=== PATIENT | female | born 1985 | race Caucasian/White ===

== ENCOUNTER 2017-12-21 15:31 | Inpatient (IN) | payer OTHER ==
[~2017-12-21] VITALS: Ht 154.9 cm; Wt 68.2 kg
[~2017-12-21 15:31] MED LIST: IBUP-1222 PO; OXYC-302 PO
[2017-12-21] MEDS ORDERED: D5%-LACTATED RINGERS 1,000 ML IV SCH (15:39)
[2017-12-21] MEDS ORDERED: LACTATED RINGERS 1,000 ML IV SCH ×2 (15:39→16:09)
[2017-12-21] MEDS ORDERED: OXYTOCIN 30U/ 0.9% NaCL 500ML 500 ML IV ONE (15:39)
[2017-12-21] MEDS ORDERED: FENTANYL PF 100 MCG/2ML IVPush PRN (16:00)
[2017-12-21] MEDS ORDERED: OXYTOCIN 30U/ 0.9% NaCL 500ML 500 ML ONE (16:00)
[2017-12-21] MEDS ORDERED: TERBUTALINE 1 MG/ML, 1ML IVPush PRN (16:00)
[2017-12-21] MEDS ORDERED: MISOPROSTOL 200 MCG TABLET ONE (16:00)
[2017-12-21] MEDS ORDERED: FENTANYL PF 100 MCG/2ML IV PRN (16:00)
[2017-12-21] MEDS ORDERED: ONDANSETRON 2MG/ML, 2ML IVPush PRN (16:00)
[2017-12-21] MEDS ORDERED: CALCIUM CARBONATE 500 MG TAB.CHEW PO PRN ×2 (16:00→18:30)
[2017-12-21] MEDS ORDERED: LIDOCAINE/PF 1%, 30ML ONE (16:01)
[2017-12-21] MEDS ORDERED: NEWBORN KIT ONE (16:01)
[2017-12-21] MEDS ORDERED: FENTANYL PF 100 MCG/2ML ONE ×2 (16:05→16:34)
[2017-12-21] MEDS ORDERED: FENTANYL/BUPIV./NS/PF 250 ML EPIDCONT SCH (16:09)
[2017-12-21 16:10] LABS: EOSINOPHILS % (AUTO) 0 % (1-7); MD NO; MEAN CORPUSCULAR HEMOGLOBIN 25.2 pg (27.0-34.8); RED CELL DISTRIBUTION WIDTH 15.6 % (9.6-15.2)
[2017-12-21] MEDS ORDERED: LACTATED RINGERS 1,000 ML IVBOLUS PRN (16:30)
[2017-12-21 16:31] LABS: BASOPHILS # (AUTO) 0.02 x10^3/uL (0-0.1); BASOPHILS % (AUTO) 0 % (0-1); EOSINOPHILS # (AUTO) 0.01 x10^3/uL (0-0.4); LYMPHOCYTES # (AUTO) 1.64 x10^3/uL (1-3.4); LYMPHOCYTES % (AUTO) 10 % (22-44); MEAN CORPUSCULAR HGB CONC 31.6 g/dL (32.4-35.8); MEAN PLATELET VOLUME 8.9 fL (7.4-10.4); MONOCYTES # (AUTO) 0.77 x10^3/uL (0.2-0.8); MONOCYTES % (AUTO) 5 % (2-9); NEUTROPHILS # (AUTO) 14.71 x10^3/uL (1.8-6.8); NEUTROPHILS % (AUTO) 86 % (42-75); PLATELET COUNT 337 x10^3/uL (130-400); RED BLOOD COUNT 4.07 x10^6/uL (3.82-5.3)
[2017-12-21] MEDS ORDERED: BUPIVACAINE 0.25% ONE (16:34)
[2017-12-21] MEDS ORDERED: FENTANYL/BUPIV./NS/PF 250 ML EPIDCONT ONE (16:34)
[2017-12-21] MEDS: OXYTOCIN 30U/ 0.9% NaCL 500ML 500 ML IV SCH (18:19)
[2017-12-21] MEDS ORDERED: DOCUSATE 100 MG CAPSULE PO PRN (18:30)
[2017-12-21] MEDS ORDERED: ONDANSETRON 2MG/ML, 2ML IV PRN (18:30)
[2017-12-21] MEDS ORDERED: METHYLERGONOVINE 0.2 MG/ML IM PRN (18:30)
[2017-12-21] MEDS ORDERED: OXYcodone/APAP 5/325MG TABLET PO PRN ×2 (18:30)
[2017-12-21] MEDS ORDERED: GLYCERIN ADULT SUPP PR PRN (18:30)
[2017-12-21] MEDS ORDERED: MEASLES,MUMPS&RUBELLA VACC/PF 0.5 ML SQ PRN (18:30)
[2017-12-21] MEDS ORDERED: DIPH,PERTUSS(ACELL),TET VAC/PF NC IM-VACC PRN (18:30)
[2017-12-21] MEDS ORDERED: MAGNESIUM HYDROXIDE 8%, 30ML UDC PO PRN (18:30)
[2017-12-21] MEDS ORDERED: BISACODYL 10 MG SUPP PR PRN (18:30)
[2017-12-21] MEDS ORDERED: CARBOPROST TROMETHAMINE 250 MCG/ML, 1ML IM PRN (18:30)
[2017-12-21] MEDS ORDERED: MISOPROSTOL 200 MCG TABLET PR PRN (18:30)
[2017-12-21] MEDS ORDERED: ACETAMINOPHEN 325 MG TABLET PO PRN ×3 (18:30)
[2017-12-21] MEDS ORDERED: RHOGAM FROM BLOOD BANK 1 NOTE EA IM/IV ONE (18:30)
[2017-12-21 21:15] VITALS: BP 108/75
[2017-12-21] MEDS: IBUPROFEN 600 MG TABLET PO PRN (22:20)
[2017-12-22 00:30] VITALS: BP 113/73
[2017-12-22] MEDS: OXYTOCIN 30U/ 0.9% NaCL 500ML 500 ML IV SCH ×2 (04:19→14:29)
[2017-12-22 05:30] VITALS: BP 128/82
[2017-12-22] MEDS: IBUPROFEN 600 MG TABLET PO PRN ×3 (05:48→18:35)
[2017-12-22 05:50] LABS: BASOPHILS # (AUTO) 0.01 x10^3/uL (0-0.1); BASOPHILS % (AUTO) 0 % (0-1); EOSINOPHILS # (AUTO) 0.02 x10^3/uL (0-0.4); EOSINOPHILS % (AUTO) 0 % (1-7); LYMPHOCYTES # (AUTO) 1.78 x10^3/uL (1-3.4); LYMPHOCYTES % (AUTO) 12 % (22-44); MD NO; MEAN CORPUSCULAR HEMOGLOBIN 25.8 pg (27.0-34.8); MEAN CORPUSCULAR HGB CONC 32.2 g/dL (32.4-35.8); MEAN CORPUSCULAR VOLUME 80.3 fL (80-100); MEAN PLATELET VOLUME 8.8 fL (7.4-10.4); MONOCYTES % (AUTO) 7 % (2-9); NEUTROPHILS # (AUTO) 11.98 x10^3/uL (1.8-6.8); NEUTROPHILS % (AUTO) 81 % (42-75); PLATELET COUNT 287 x10^3/uL (130-400); RED BLOOD COUNT 3.42 x10^6/uL (3.82-5.3); RED CELL DISTRIBUTION WIDTH 15.3 % (9.6-15.2)
[2017-12-22 07:20] VITALS: BP 131/76
[2017-12-22] MEDS ORDERED: PRENATAL VIT/IRON/FA 1 EACH TABLET PO SCH (09:00)
[2017-12-22] MEDS ORDERED: FERR325T5 PO (09:58)
[2017-12-22 13:05] VITALS: BP 118/76
[2017-12-22 16:20] VITALS: BP 128/82
[2017-12-22] MEDS ORDERED: PREN1TAB98 PO (17:52)
== END 2017-12-22 18:50 | disposition home or self-care (01) | DRG 775 ==
LOC: LDOP 15:31 → LDIP 15:51 → 2NW 20:45
PROVIDERS: ADMIT Obstetrics & Gynecology Gynecology; ATTEND Obstetrics & Gynecology Gynecology
PROC: 10E0XZZ Delivery of Products of Conception, External Approach (ICD-10-PCS; principal; 2017-12-22)
PROC: 10907ZC Drainage of Amniotic Fluid, Therapeutic from Products of Conception, Via Natural or Artificial Opening (ICD-10-PCS; 2017-12-22)
PROC: 3E0R3BZ Introduction of Anesthetic Agent into Spinal Canal, Percutaneous Approach (ICD-10-PCS; 2017-12-22)
PROC: 00HU33Z Insertion of Infusion Device into Spinal Canal, Percutaneous Approach (ICD-10-PCS; 2017-12-22)
DX: O69.1XX0 Labor and delivery complicated by cord around neck, with compression, not applicable or unspecified (principal); O66.0 Obstructed labor due to shoulder dystocia; O71.82 Other specified trauma to perineum and vulva; Z37.0 Single live birth; Z3A.39 39 weeks gestation of pregnancy
CPT/HCPCS: 36415; 85025; 86850; 86900; J3010; J2590; J7120